=== PATIENT | female | born 1965 | race African-American/Black ===

== ENCOUNTER → 2018-04-09 09:09 | Outpatient (CLI) | payer BC, SELFPAY ==
--- NOTE | 2018-04-09 | US_ITS ---
FNA w guidance, US organ site (thyroid) HISTORY: Multinodular goiter reported with an isthmus nodule reported on an outside exam ORDERING PHYSICIAN: Brian Calixto MD PATIENT AGE: 52 years COMPARISON: The outside exam is not available for review. Prebiopsy exam was performed demonstrating enlarged thyroid gland bilaterally. The isthmus nodule was visualized. TECHNIQUE: Biopsy was technically difficult to perform due to patient's body habitus and poor visualization of the nodule of interest. Following obtaining informed consent, using aseptic technique and local anesthesia with buffered lidocaine, fine-needle aspiration was performed of the nodule of interest using sonographic guidance. 3 passes were made into the nodule with a 25-gauge needle. Specimen was given to cytology. The patient tolerated the procedure well without evidence of immediate complications and left the ultrasound suite in stable condition. CYTOLOGY:Nondiagnostic specimen IMPRESSION: Nondiagnostic specimen. This was a difficult FNA to perform. There was a suspected 2 cm nodule in the lower pole on the left however, this is also not well delineated due to the limitations. If any further biopsy is requested then, a nuclear medicine study of the thyroid will be needed and the patient's old films will be needed to plan for biopsy planning
--- NOTE | 2018-04-09 | US_ITS ---
US thyroid HISTORY: Thyroid nodule ITS.REASON: THYROID BX ORDERING PHYSICIAN: Brian Calixto MD PATIENT AGE: 52 years Comparison: None FINDINGS: The patient is scheduled for a FNA of the thyroid gland. Old films however are not available for review. Prebiopsy scanning was performed. Study is technically difficult due to patient's body habitus Right lobe: 5.4 x 2.6 x 3.5 cm. Heterogeneous echogenicity. 12 mm isoechoic ill-defined nodule in the mid polar region 17 mm isoechoic nodular area in the lower pole posteriorly. Left lobe: 5.1 x 2.8 x 2.5 cm. 6 mm hypoechoic nodule mid polar region on the left cyst with a small cyst. There is a questionable 2 cm hypoechoic nodule in the lower pole on the left. Ill-defined 1 7-m hypoechoic nodule noted in the isthmus. IMPRESSION: Thyromegaly with bilateral nodules and isthmus nodule as described above.
== END ==
PROVIDERS: PCP Family Medicine; Visit Provider Otolaryngology
DX: E04.1 Nontoxic single thyroid nodule (principal)
CPT/HCPCS: 10022; 76536; 88173